=== PATIENT | female | born 1975 | race Caucasian/White ===

== ENCOUNTER 2022-06-19 07:20 | Day surgery (SDC) | payer OTHER ==
[~2022-06-19] VITALS: Ht 170.2 cm; Wt 86.4 kg
[~2022-06-19 07:20] MED LIST: CELEBREX100 MG PO
--- NOTE | 2022-06-19 09:18 | NUR ---
06/19/22 0918 Manisha Moreno 0913- PT ARRIVES TO PACU NONAROUSABLE TO NOXIOUS STIMULI WITH AN OPA IN PLACE. RESP EVEN AND UNLABORED. OXYGEN SAT HIGH 90'S TO 100% ON 6L VIA MASK. PT'S RIGHT LEG ELEVATED ON A PILLOW. ICE PACK APPLIED TO PT'S RIGHT KNEE WITH DRESSING IN BETWEEN SKIN AND ICE PACK.
[2022-06-19] MEDS ORDERED: HYDROCODON-ACE1 EA10 PO (09:19)
[2022-06-19] MEDS ORDERED: DICLOFENAC SODI75 MG PO (09:19)
--- NOTE | 2022-06-19 09:57 | NUR ---
0967-PATIENT BACK TO ROOM FROM PACU ON . RECEIVED REPORT FROM SHAKIRA PALENCIA. PATIENT IS AWAKE. RESP EVEN AND UNLABORED. DENIES PAIN AND NAUSEA. DRESSING CLEAN, DRY, AND INTACT. ICE PACK IN PLACE. KNEE ELEVATED WITH A PILLOW. COFFEE AND APPLESAUCE PROVIDED TO PATIENT. IN ROOM. CALL LIGHT WITHIN REACH.
--- NOTE | 2022-06-19 10:10 | NUR ---
1010-PATIENT UP TO RESTROOM WITH 1 RN ASSIST. GAIT STEADY AND TOLERATED WELL. PATIENT VOIDED 300ML OF YELLOW URINE.
--- NOTE | 2022-06-19 10:45 | NUR ---
1045-PATIENT GOT DRESSED. DENIES PAIN AND NAUSEA. STATES SHE JUST FEELS SOME PRESSURE IN HER RIGHT KNEE. PROVIDED PATIENT WILL A NEW ICE PACK. PATIENT READY TO GO HOME.
--- NOTE | 2022-06-19 11:05 | NUR ---
1050-PROVIDED PATIENT AND WITH DISCHARGE INSTRUCTIONS. ALL QUESTIONS ANSWERED. DENIES PAIN. PATIENT AMBULATES TO WHEELCHAIR. GAIT STEADY AND TOLERATED WELL. RIDE PROVIDED RIDE TO FRONT OF HOSPITAL WHERE WAS WAITING WITH THE CAR.
--- NOTE | 2022-06-19 11:17 | OR ---
[facility] [address], [place] [address] Signed DATE OF OPERATION: 06/19/2022 SURGEON: Karli Mora MD PREOPERATIVE DIAGNOSIS: Medial meniscus tear, right knee. POSTOPERATIVE DIAGNOSIS: Right knee synovitis. PROCEDURE PERFORMED: Right knee diagnostic arthroscopy. QUALITY CONTROL ANALYST: None. ANESTHESIA: General. BLOOD LOSS: Minimal. BRIEF HISTORY: Lita is a 46-year-old female, who injured her knee. MRI was consistent with a partial ACL tear and medial meniscus tear. Risks and benefits of operative treatment were discussed with her and she elected to proceed. PROCEDURE IN DETAIL: Once consent was obtained, she was taken to the operating room. After adequate anesthesia, she was placed on the operating room table. The left leg was flexed, abducted and externally rotated on a well-padded leg moore. The leg was placed in a well-padded proximal thigh leg moore. No tourniquet was placed. The leg was then prepped and draped in a standard sterile fashion. The portal sites were injected with 0.25% Marcaine with epinephrine. Standard inferolateral and superolateral portals were established and the scope was placed in the knee. ARTHROSCOPIC FINDINGS: Grade 1 chondromalacia to the medial facet of the patella was noted. The patella did track well. Medial and lateral gutters were clear, but did show significant synovitis. The ACL was intact and did take tension on appropriate drawer test. The knee was quite Electronically Signed By: KARLI MORA MD 06/19/22 1117 PATIENT NAME: LITA MANNING OPERATIVE REPORT DATE OF : 73 REPORT #: [id number] PHYSICIAN: KARLI MORA MD PCP: NO PRIMARY CARE PHYSICIAN REPORT IS CONFIDENTIAL AND NOT TO BE RELEASED WITHOUT AUTHORIZATION [facility] [address] [place] [id number] Signed stable on exam under anesthesia. The medial and lateral compartments showed no significant chondromalacia. Both menisci were found to be intact. The medial meniscus was visualized and palpated on its superior and inferior surfaces from the posterior root all the way anteriorly. No meniscus tear was palpated or visualized. Same with the lateral meniscus. The knee was thoroughly debrided and irrigated. The scope was then withdrawn. Portals were closed with 3-0 nylon and the knee was injected with 60 mg of Toradol. The wounds were dressed with Adaptic, ABD, and Mack wrap. She tolerated the procedure well. All sponge, needle, and instrument counts were correct. Karli Mora MD BA/SILVESTREL /[id number] Copies: ~ Electronically Signed By: KARLI MORA MD 06/19/22 1117 PATIENT NAME: LITA MANNING OPERATIVE REPORT DATE OF : 73 REPORT #: [id number] PHYSICIAN: KARLI MORA MD PCP: NO PRIMARY CARE PHYSICIAN REPORT IS CONFIDENTIAL AND NOT TO BE RELEASED WITHOUT AUTHORIZATION
== END 2022-06-19 10:50 | disposition home or self-care (01) ==
LOC: DS 07:20
PROVIDERS: ATTEND Specialist
PROC: 0SJC4ZZ Inspection of Right Knee Joint, Percutaneous Endoscopic Approach (ICD-10-PCS; principal; 2022-06-19 09:25)
DX: S83.91XA Sprain of unspecified site of right knee, initial encounter (principal); X58.XXXA Exposure to other specified factors, initial encounter
CPT/HCPCS: J0690; J1100; J1885; J2001; J2405; J2704; J3010; J7121